=== PATIENT | male | born 1960 | race Caucasian/White ===

== ENCOUNTER 2021-04-05 12:32 | Inpatient (IN) ==
[2021-04-05] MEDS ORDERED: Isovue-370 500 ML BOTTLE IVP ONE (13:40)
[2021-04-05 14:03] LABS: Alanine Aminotransferase 104 Units/L (7-52); Albumin 3.7 g/dL (3.5-5.7); Albumin/Globulin Ratio 1.1 (1.1-2.2); Alkaline Phosphatase 86 Units/L (34-104); Aspartate Amino Transferase 224 Units/L (13-39); BUN/Creatinine Ratio 21 (6-26); Bilirubin,Direct 0.2 mg/dL (0.0-0.2); Bilirubin,Indirect 0.6 mg/dL (0.0-1.0); Bilirubin,Total 0.8 mg/dL (0.3-1.0); Blood Urea Nitrogen 29 mg/dL (6-20); Calcium 8.2 mg/dL (8.6-10.3); Carbon Dioxide 23 mEq/L (23-29); Chloride 87 mEq/L (98-107); Globulin 3.3 g/dL (2.4-3.5); Glucose 113 mg/dL (70-105); Osmolality,Calculated 269 (280-300); Potassium 3.4 mEq/L (3.5-5.1); Sodium 126 mEq/L (136-145); Troponin I 0.05 ng/mL (< 0.04); eGFR For African Americans > 60 (> 60); eGFR For Non-African Americans 51 (> 60)
[2021-04-05 14:16] LABS: Basophils % 0.3 %; Hematocrit 36.5 % (37.5-50.1); Immature Granulocytes % 4.4 % (0-4); Lymphocytes # 0.7 K/mcL (0.6-4.6); Lymphocytes % 10.8 %; Mean Corpuscular HGB Conc 35.6 g/dL (31.6-35.5); Mean Corpuscular Hemoglobin 30.4 pg (28.0-33.3); Mean Corpuscular Volume 85.5 fL (83.0-100.0); Mean Platelet Volume 9.5 fL (9.4-12.4); Monocytes # 0.4 K/mcL (0.0-1.3); Monocytes % 6.4 %; Neutrophils # 4.8 K/mcL (1.6-8.9); Nucleated Red Blood Cells 0.8 /100 WBC (0); Platelet Count 166 K/mcL (140-400); Red Blood Count 4.27 M/mcL (4.19-5.50); Red Cell Distribution Width 13.2 % (11.5-14.5); Segmented Neutrophils % 78.1 %; White Blood Count 6.1 K/mcL (4.3-11.1)
[2021-04-05] MEDS ORDERED: 0.9 % Sodium Chloride 250 ML IVC ONE (14:26)
[2021-04-05] MEDS ORDERED: Aspirin 325 MG TABLET PO ONE (15:04)
[2021-04-05 15:05] LABS: Platelet Estimate Normal (Normal)
[2021-04-05] MEDS ORDERED: 0.9 % Sodium Chloride 500 ML IVC ONE (15:30)
[2021-04-05] MEDS ORDERED: Melatonin 3 MG TABLET PO PRN (15:45)
[2021-04-05] MEDS ORDERED: Ondansetron 4 MG/2 ML VIAL IVP PRN (15:45)
[2021-04-05] MEDS ORDERED: Acetaminophen 325 MG TABLET PO PRN (15:45)
[2021-04-05] MEDS ORDERED: Naloxone 0.4 MG/ML INJ IVP PRN (15:45)
[2021-04-05] MEDS: Dexamethasone Sodium Phos/PF 10 MG/ML VIAL IVP SCH ×2 (15:57→16:26)
[2021-04-05] MEDS ORDERED: Remdesivir 200 MG in 0.9 % Sodium Chloride 100 ML IVPB ONE ×2 (16:09→17:22)
[2021-04-05 16:53] LABS: Creatine Kinase 3319 Units/L (30-223)
[2021-04-05 16:57] LABS: Bilirubin,Urine Negative (Negative); Blood,Urine Moderate (Negative); Clarity,Urine Clear (Clear); Color,Urine Light-Yellow (Yellow); Glucose,Urine (UA) Normal (Normal); Ketones,Urine Negative (Negative); Leukocyte Esterase,Urine Negative (Negative); Nitrite,Urine Negative (Negative); Protein,Urine 50 mg/dL (Neg-Trace); RBC,Urine 0-3 per hpf (0-3); Specific Gravity,Urine 1.018 (1.010-1.025); Squamous Epithelial Cell,Urine Few per hpf (None-Few); Urobilinogen,Urine Normal (Normal); WBC,Urine 0-3 per hpf (0-3)
[2021-04-05 20:06] LABS: BUN/Creatinine Ratio 21 (6-26); Blood Urea Nitrogen 24 mg/dL (6-20); Calcium 7.8 mg/dL (8.6-10.3); Carbon Dioxide 23 mEq/L (23-29); Chloride 95 mEq/L (98-107); Glucose 120 mg/dL (70-105); Osmolality,Calculated 273 (280-300); Potassium 3.9 mEq/L (3.5-5.1); Sodium 129 mEq/L (136-145); eGFR For African Americans > 60 (> 60); eGFR For Non-African Americans > 60 (> 60)
[2021-04-05] MEDS: 0.9 % Sodium Chloride 1,000 ML IVC SCH (20:14)
[2021-04-06 02:31] LABS: Influenza A PCR Negative (Negative); Influenza B PCR Negative (Negative); Resp. Syncytial Virus PCR Negative (Negative)
[2021-04-06 02:32] LABS: SARS-CoV-2 by PCR (In House) Positive (Negative)
[2021-04-06] MEDS: 0.9 % Sodium Chloride 1,000 ML IVC SCH ×2 (04:22→12:24)
[2021-04-06 06:04] LABS: Hematocrit 39.6 % (37.5-50.1); Hemoglobin 13.6 g/dL (12.9-16.9); Mean Corpuscular HGB Conc 34.3 g/dL (31.6-35.5); Mean Corpuscular Hemoglobin 30.5 pg (28.0-33.3); Mean Corpuscular Volume 88.8 fL (83.0-100.0); Mean Platelet Volume 9.7 fL (9.4-12.4); Platelet Count 182 K/mcL (140-400); Red Blood Count 4.46 M/mcL (4.19-5.50); Red Cell Distribution Width 13.4 % (11.5-14.5); White Blood Count 6.3 K/mcL (4.3-11.1)
[2021-04-06] MEDS: *HR* Enoxaparin 40 MG/0.4 ML SYRINGE SQ SCH (06:05)
[2021-04-06 06:29] LABS: BUN/Creatinine Ratio 22 (6-26); Blood Urea Nitrogen 23 mg/dL (6-20); Carbon Dioxide 22 mEq/L (23-29); Chloride 100 mEq/L (98-107); Glucose 134 mg/dL (70-105); Magnesium 2.7 mg/dL (1.6-2.6); Osmolality,Calculated 284 (280-300); Potassium 4.1 mEq/L (3.5-5.1); Sodium 134 mEq/L (136-145); eGFR For African Americans > 60 (> 60); eGFR For Non-African Americans > 60 (> 60)
[2021-04-06 07:53] LABS: Albumin 3.5 g/dL (3.5-5.7); Albumin/Globulin Ratio 1.3 (1.1-2.2); Bilirubin,Direct 0.2 mg/dL (0.0-0.2); Bilirubin,Indirect 0.4 mg/dL (0.0-1.0); Bilirubin,Total 0.6 mg/dL (0.3-1.0); Globulin 2.7 g/dL (2.4-3.5); Total Protein 6.2 g/dL (6.4-8.9)
[2021-04-06] MEDS: Dexamethasone Sodium Phos/PF 10 MG/ML VIAL IVP SCH (08:28)
[2021-04-06] MEDS: cefTRIAXone 1,000 MG in Water for inj. (sterile) 10 ML IVP SCH (12:23)
[2021-04-06] MEDS: Remdesivir 100 MG in 0.9 % Sodium Chloride 100 ML IVPB SCH (16:26)
[2021-04-06] MEDS ORDERED: Remdesivir 100 MG in 0.9 % Sodium Chloride 100 ML IVPB SCH (17:00)
[2021-04-07] MEDS ORDERED: Artificial Tears SOLN 15 ML BOTTLE BOTH EYES SCH (03:11)
[2021-04-07] MEDS: CLEAR EYES NATURAL TEARS 15 ML BOTTLE BOTH EYES SCH ×5 (04:00→21:16)
[2021-04-07] MEDS: 0.9 % Sodium Chloride 1,000 ML IVC SCH (04:01)
[2021-04-07] MEDS: *HR* Enoxaparin 40 MG/0.4 ML SYRINGE SQ SCH (04:48)
[2021-04-07 09:19] LABS: Troponin I 0.11 ng/mL (< 0.04)
[2021-04-07] MEDS: Dexamethasone Sodium Phos/PF 10 MG/ML VIAL IVP SCH (09:28)
[2021-04-07] MEDS: cefTRIAXone 1,000 MG in Water for inj. (sterile) 10 ML IVP SCH (09:28)
[2021-04-07] MEDS ORDERED: *HR* Enoxaparin 150 MG/ML SYRINGE SQ SCH (09:30)
[2021-04-07] MEDS ORDERED: *HR* Enoxaparin 100 MG/ML SYRINGE SQ ONE (09:48)
[2021-04-07 11:17] LABS: Albumin 3.4 g/dL (3.5-5.7); Albumin/Globulin Ratio 1.1 (1.1-2.2); Alkaline Phosphatase 125 Units/L (34-104); Aspartate Amino Transferase 128 Units/L (13-39); Bilirubin,Direct 0.2 mg/dL (0.0-0.2); Bilirubin,Indirect 0.5 mg/dL (0.0-1.0); Bilirubin,Total 0.7 mg/dL (0.3-1.0); C-Reactive Protein 37 mg/L (Less than 10); Calcium 7.8 mg/dL (8.6-10.3); Chloride 105 mEq/L (98-107); Creatine Kinase 1604 Units/L (30-223); Globulin 3.2 g/dL (2.4-3.5); Glucose 157 mg/dL (70-105); Phosphorous 2.3 mg/dL (2.7-4.5); Potassium 3.5 mEq/L (3.5-5.1); Sodium 139 mEq/L (136-145); Total Protein 6.6 g/dL (6.4-8.9)
[2021-04-07 13:01] LABS: Alanine Aminotransferase 96 Units/L (7-52); BUN/Creatinine Ratio 23 (6-26); Blood Urea Nitrogen 21 mg/dL (6-20); Carbon Dioxide 24 mEq/L (23-29); Magnesium 2.5 mg/dL (1.6-2.6); Osmolality,Calculated 294 (280-300); eGFR For African Americans > 60 (> 60); eGFR For Non-African Americans > 60 (> 60)
[2021-04-07] MEDS: Remdesivir 100 MG in 0.9 % Sodium Chloride 100 ML IVPB SCH (17:00)
[2021-04-07] MEDS: Ipratropium 1 PUFF INHALER IH SCH ×2 (18:06→20:56)
[2021-04-07] MEDS ORDERED: Furosemide 40 MG/4 ML VIAL IVP ONE (18:26)
[2021-04-07] MEDS: *HR* Enoxaparin 150 MG/ML SYRINGE SQ SCH (21:16)
[2021-04-08] MEDS: Ipratropium 1 PUFF INHALER IH SCH ×4 (05:45→22:23)
[2021-04-08] MEDS: CLEAR EYES NATURAL TEARS 15 ML BOTTLE BOTH EYES SCH ×4 (08:03→20:46)
[2021-04-08 08:55] LABS: Alanine Aminotransferase 102 Units/L (7-52); Albumin 3.6 g/dL (3.5-5.7); Albumin/Globulin Ratio 1.2 (1.1-2.2); Alkaline Phosphatase 163 Units/L (34-104); Aspartate Amino Transferase 102 Units/L (13-39); BUN/Creatinine Ratio 30 (6-26); Bilirubin,Direct 0.2 mg/dL (0.0-0.2); Bilirubin,Indirect 0.7 mg/dL (0.0-1.0); Bilirubin,Total 0.9 mg/dL (0.3-1.0); Blood Urea Nitrogen 28 mg/dL (6-20); Calcium 8.4 mg/dL (8.6-10.3); Carbon Dioxide 26 mEq/L (23-29); Chloride 105 mEq/L (98-107); Creatine Kinase 1237 Units/L (30-223); Glucose 126 mg/dL (70-105); Magnesium 2.3 mg/dL (1.6-2.6); Osmolality,Calculated 297 (280-300); Phosphorous 3.4 mg/dL (2.7-4.5); Sodium 140 mEq/L (136-145); Total Protein 6.6 g/dL (6.4-8.9); eGFR For African Americans > 60 (> 60); eGFR For Non-African Americans > 60 (> 60)
[2021-04-08] MEDS: Dexamethasone Sodium Phos/PF 10 MG/ML VIAL IVP SCH (09:13)
[2021-04-08] MEDS: cefTRIAXone 1,000 MG in Water for inj. (sterile) 10 ML IVP SCH (09:14)
[2021-04-08] MEDS: *HR* Enoxaparin 150 MG/ML SYRINGE SQ SCH ×2 (11:56→22:25)
[2021-04-08] MEDS: Remdesivir 100 MG in 0.9 % Sodium Chloride 100 ML IVPB SCH (18:43)
[2021-04-08] MEDS: *HR* LORazepam 2 MG/ML VIAL IVP PRN (22:26)
[2021-04-08] MEDS ORDERED: Dexmedetomidine HCl 400 MCG/100 ML MLS IVC ONE (23:47)
[2021-04-09] MEDS ORDERED: *HR* LORazepam 2 MG/ML VIAL IVP ONE
[2021-04-09] MEDS: Dexmedetomidine HCl 400 MCG/100 ML MLS IVC SCH ×8 (00:04→20:12)
[2021-04-09] MEDS ORDERED: *HR* Labetalol 20 MG/4 ML SYRINGE IVP ONE ×3 (00:05→22:34)
[2021-04-09] MEDS ORDERED: Haloperidol Lactate 5 MG/ML VIAL IVP ONE ×2 (00:24→22:28)
[2021-04-09 03:10] LABS: Hematocrit 37.3 % (37.5-50.1); Hemoglobin 12.4 g/dL (12.9-16.9); Mean Corpuscular HGB Conc 33.2 g/dL (31.6-35.5); Mean Corpuscular Hemoglobin 29.7 pg (28.0-33.3); Mean Corpuscular Volume 89.2 fL (83.0-100.0); Mean Platelet Volume 9.8 fL (9.4-12.4); Platelet Count 144 K/mcL (140-400); Red Blood Count 4.18 M/mcL (4.19-5.50); Red Cell Distribution Width 14.1 % (11.5-14.5); White Blood Count 15.9 K/mcL (4.3-11.1)
[2021-04-09] MEDS: Ipratropium 1 PUFF INHALER IH SCH ×4 (03:14→20:45)
[2021-04-09 03:26] LABS: Albumin 3.3 g/dL (3.5-5.7); Albumin/Globulin Ratio 1.1 (1.1-2.2); Bilirubin,Direct 0.2 mg/dL (0.0-0.2); Bilirubin,Indirect 0.6 mg/dL (0.0-1.0); Bilirubin,Total 0.8 mg/dL (0.3-1.0); Globulin 3.1 g/dL (2.4-3.5); Total Protein 6.4 g/dL (6.4-8.9)
[2021-04-09 03:28] LABS: BUN/Creatinine Ratio 26 (6-26); Blood Urea Nitrogen 28 mg/dL (6-20); Calcium 8.2 mg/dL (8.6-10.3); Carbon Dioxide 23 mEq/L (23-29); Chloride 104 mEq/L (98-107); Glucose 157 mg/dL (70-105); Osmolality,Calculated 291 (280-300); Potassium 4.3 mEq/L (3.5-5.1); Sodium 136 mEq/L (136-145); eGFR For African Americans > 60 (> 60); eGFR For Non-African Americans > 60 (> 60)
[2021-04-09] MEDS: cefTRIAXone 1,000 MG in Water for inj. (sterile) 10 ML IVP SCH (08:37)
[2021-04-09] MEDS: Dexamethasone Sodium Phos/PF 10 MG/ML VIAL IVP SCH (08:38)
[2021-04-09] MEDS: CLEAR EYES NATURAL TEARS 15 ML BOTTLE BOTH EYES SCH ×4 (08:39→22:10)
[2021-04-09] MEDS ORDERED: Furosemide 40 MG/4 ML VIAL IVP ONE (11:35)
[2021-04-09] MEDS: *HR* Enoxaparin 150 MG/ML SYRINGE SQ SCH ×2 (13:12→20:09)
[2021-04-09] MEDS: Furosemide 20 MG/2 ML VIAL IVP SCH (16:20)
[2021-04-09] MEDS: Remdesivir 100 MG in 0.9 % Sodium Chloride 100 ML IVPB SCH (20:08)
[2021-04-09] MEDS: *HR* LORazepam 2 MG/ML VIAL IVP PRN (22:09)
[2021-04-09] MEDS: LORazepam 20 MG in D5% in Water (EXCEL) 240 ML IVC SCH (23:08)
[2021-04-09] MEDS ORDERED: Furosemide 20 MG/2 ML VIAL IVP ONE (23:33)
[2021-04-10] MEDS: Dexmedetomidine HCl 400 MCG/100 ML MLS IVC SCH ×3 (01:37→07:00)
[2021-04-10 02:53] LABS: Albumin 3.3 g/dL (3.5-5.7); BUN/Creatinine Ratio 35 (6-26); Bilirubin,Direct 0.1 mg/dL (0.0-0.2); Bilirubin,Indirect 0.6 mg/dL (0.0-1.0); Bilirubin,Total 0.7 mg/dL (0.3-1.0); Blood Urea Nitrogen 37 mg/dL (6-20); C-Reactive Protein 128 mg/L (Less than 10); Calcium 8.1 mg/dL (8.6-10.3); Carbon Dioxide 24 mEq/L (23-29); Chloride 102 mEq/L (98-107); Globulin 3.3 g/dL (2.4-3.5); Glucose 197 mg/dL (70-105); Osmolality,Calculated 300 (280-300); Potassium 4.2 mEq/L (3.5-5.1); Sodium 138 mEq/L (136-145); Total Protein 6.6 g/dL (6.4-8.9); eGFR For African Americans > 60 (> 60); eGFR For Non-African Americans > 60 (> 60)
[2021-04-10] MEDS: Ipratropium 1 PUFF INHALER IH SCH ×4 (04:15→21:43)
[2021-04-10 05:27] LABS: ABG Base Excess 3 mEq/L (-2 to 3); ABG HCO3 26 mEq/L (21-27); ABG Oxygen Saturation 91 % (95-98); ABG PCO2 37 mmHg (35-45); ABG PH 7.46 pH Units (7.32-7.45); ABG PO2 57 mmHg (85-104); ABG TCO2 28 mEq/L (20-26)
[2021-04-10] MEDS: LORazepam 20 MG in D5% in Water (EXCEL) 240 ML IVC SCH (05:44)
[2021-04-10] MEDS: cefTRIAXone 1,000 MG in Water for inj. (sterile) 10 ML IVP SCH (07:57)
[2021-04-10] MEDS: Dexamethasone Sodium Phos/PF 10 MG/ML VIAL IVP SCH (07:58)
[2021-04-10] MEDS: Furosemide 20 MG/2 ML VIAL IVP SCH ×2 (07:58→16:45)
[2021-04-10] MEDS: CLEAR EYES NATURAL TEARS 15 ML BOTTLE BOTH EYES SCH (08:19)
[2021-04-10] MEDS: FentaNYL (PF) 1,000 MCG/100 ML IV.SOLN IVC SCH ×2 (08:54→15:49)
[2021-04-10] MEDS: *HR* Enoxaparin 150 MG/ML SYRINGE SQ SCH ×2 (11:19→19:52)
[2021-04-10] MEDS: Norepinephrine 4 MG/254 ML IV.SOLN IVC SCH (11:41)
[2021-04-10] MEDS: Midazolam HCl 50 MG/100 ML IV.SOLN IVC SCH (11:44)
[2021-04-10 12:16] LABS: ABG Base Excess 1 mEq/L (-2 to 3); ABG HCO3 31 mEq/L (21-27); ABG Oxygen Saturation 89 % (95-98); ABG PCO2 72 mmHg (35-45); ABG PH 7.24 pH Units (7.32-7.45); ABG PO2 69 mmHg (85-104); ABG TCO2 33 mEq/L (20-26); Blood Gas Modality ASSIST CONTROL; Blood Gas VT 450 cc
[2021-04-10] MEDS: 0.9 % Sodium Chloride 1,000 ML IVC SCH (12:24)
[2021-04-10] MEDS: Cisatracurium 200 MG in 0.9 % Sodium Chloride 180 ML IVC SCH ×2 (12:45→21:41)
[2021-04-10] MEDS: Artificial Tears SOLN 15 ML BOTTLE BOTH EYES SCH ×3 (12:45→19:53)
[2021-04-10 15:12] LABS: Basophils # 0.1 K/mcL (0.0-0.2); Basophils % 0.3 %; Eosinophils % 0.1 %; Hematocrit 44.7 % (37.5-50.1); Immature Granulocytes % 3.5 % (0-4); Lymphocytes # 0.4 K/mcL (0.6-4.6); Lymphocytes % 2.5 %; Mean Corpuscular HGB Conc 31.5 g/dL (31.6-35.5); Mean Corpuscular Hemoglobin 29.9 pg (28.0-33.3); Mean Corpuscular Volume 94.9 fL (83.0-100.0); Mean Platelet Volume 10.6 fL (9.4-12.4); Monocytes # 0.6 K/mcL (0.0-1.3); Monocytes % 3.3 %; Neutrophils # 15.4 K/mcL (1.6-8.9); Platelet Count 224 K/mcL (140-400); Red Blood Count 4.71 M/mcL (4.19-5.50); Red Cell Distribution Width 14.4 % (11.5-14.5); Segmented Neutrophils % 90.3 %
[2021-04-10 15:21] LABS: Amorphous Sediment,Urine Few per hpf (None-Few); Bilirubin,Urine Negative (Negative); Blood,Urine Large (Negative); Clarity,Urine Ex.Turbid (Clear); Color,Urine Yellow (Yellow); Glucose,Urine (UA) Normal (Normal); Ketones,Urine Negative (Negative); Leukocyte Esterase,Urine Negative (Negative); Mucus,Urine Few per lpf (None-Few); Nitrite,Urine Negative (Negative); Protein,Urine 200 mg/dL (Neg-Trace); Specific Gravity,Urine 1.029 (1.010-1.025); Transitional Epi Cells,Urine Few per hpf (None-Few); Urobilinogen,Urine Normal (Normal); WBC,Urine 30-50 per hpf (0-3)
[2021-04-10 15:41] LABS: Hemoglobin 14.1 g/dL (12.9-16.9)
[2021-04-10 15:46] LABS: ABG Base Excess 1 mEq/L (-2 to 3); ABG Chloride 104 mEq/L (98-107); ABG Glucose 174 mg/dL (60-95); ABG HCO3 34 mEq/L (21-27); ABG Oxygen Saturation 99 % (95-98); ABG PCO2 102 mmHg (35-45); ABG PH 7.14 pH Units (7.32-7.45); ABG PO2 200 mmHg (85-104); ABG TCO2 38 mEq/L (20-26); Blood Gas Modality BiLevel; Blood Gas VT 450 cc
[2021-04-10 15:55] LABS: Platelet Estimate Normal (Normal)
[2021-04-10 20:12] LABS: ABG Base Excess 2 mEq/L (-2 to 3); ABG HCO3 34 mEq/L (21-27); ABG Oxygen Saturation 100 % (95-98); ABG PCO2 87 mmHg (35-45); ABG PO2 208 mmHg (85-104); ABG TCO2 37 mEq/L (20-26); Blood Gas VT 500 cc
[2021-04-10] MEDS: FentaNYL (PF) 2,500 MCG/50 ML IV.SOLN IVC SCH (22:51)
[2021-04-11] MEDS: Ipratropium 1 PUFF INHALER IH SCH ×4 (03:21→21:16)
[2021-04-11 03:43] LABS: Basophils # 0.1 K/mcL (0.0-0.2); Basophils % 0.5 %; Hematocrit 45.8 % (37.5-50.1); Hemoglobin 13.8 g/dL (12.9-16.9); Immature Granulocytes % 3.3 % (0-4); Lymphocytes # 0.3 K/mcL (0.6-4.6); Lymphocytes % 1.7 %; Mean Corpuscular HGB Conc 30.1 g/dL (31.6-35.5); Mean Corpuscular Hemoglobin 29.1 pg (28.0-33.3); Mean Corpuscular Volume 96.4 fL (83.0-100.0); Mean Platelet Volume 10.3 fL (9.4-12.4); Monocytes # 0.7 K/mcL (0.0-1.3); Monocytes % 4.7 %; Neutrophils # 13.7 K/mcL (1.6-8.9); Nucleated Red Blood Cells 0.3 /100 WBC (0); Platelet Count 237 K/mcL (140-400); Red Blood Count 4.75 M/mcL (4.19-5.50); Red Cell Distribution Width 14.6 % (11.5-14.5); Segmented Neutrophils % 89.8 %; White Blood Count 15.3 K/mcL (4.3-11.1)
[2021-04-11 03:51] LABS: VBG Ionized Calcium 1.08 mmol/L (1.15-1.35)
[2021-04-11 03:54] LABS: ABG Base Excess 3 mEq/L (-2 to 3); ABG HCO3 34 mEq/L (21-27); ABG Oxygen Saturation 95 % (95-98); ABG PCO2 81 mmHg (35-45); ABG PH 7.23 pH Units (7.32-7.45); ABG PO2 94 mmHg (85-104); ABG TCO2 37 mEq/L (20-26); Blood Gas VT 500 cc
[2021-04-11 03:57] LABS: BUN/Creatinine Ratio 32 (6-26); Blood Urea Nitrogen 40 mg/dL (6-20); Calcium 8.4 mg/dL (8.6-10.3); Carbon Dioxide 33 mEq/L (23-29); Chloride 103 mEq/L (98-107); Glucose 191 mg/dL (70-105); Osmolality,Calculated 307 (280-300); Phosphorous 4.6 mg/dL (2.7-4.5); Potassium 5.2 mEq/L (3.5-5.1); Sodium 141 mEq/L (136-145); eGFR For African Americans > 60 (> 60); eGFR For Non-African Americans 59 (> 60)
[2021-04-11 04:42] LABS: Platelet Estimate Normal (Normal)
[2021-04-11] MEDS ORDERED: Calcium Gluconate 1gm/50mL 1 GM/50 ML BAG IVPB ONE (05:00)
[2021-04-11] MEDS: cefTRIAXone 1,000 MG in Water for inj. (sterile) 10 ML IVP SCH (07:41)
[2021-04-11] MEDS: Furosemide 20 MG/2 ML VIAL IVP SCH ×2 (07:41→16:42)
[2021-04-11] MEDS: Dexamethasone Sodium Phos/PF 10 MG/ML VIAL IVP SCH (07:42)
[2021-04-11] MEDS: Artificial Tears SOLN 15 ML BOTTLE BOTH EYES SCH ×4 (07:42→19:53)
[2021-04-11] MEDS: Cisatracurium 200 MG in 0.9 % Sodium Chloride 180 ML IVC SCH ×2 (07:42→19:53)
[2021-04-11] MEDS: Midazolam HCl 50 MG/100 ML IV.SOLN IVC SCH (09:18)
[2021-04-11] MEDS: Norepinephrine 4 MG/254 ML IV.SOLN IVC SCH (09:18)
[2021-04-11] MEDS ORDERED: Pantoprazole 40 MG VIAL IVP ONE (09:27)
[2021-04-11] MEDS: *HR* Enoxaparin 150 MG/ML SYRINGE SQ SCH ×2 (10:05→22:20)
[2021-04-11] MEDS: FentaNYL (PF) 2,500 MCG/50 ML IV.SOLN IVC SCH (16:16)
[2021-04-12] MEDS: Ipratropium 1 PUFF INHALER IH SCH ×4 (02:52→21:43)
[2021-04-12 03:51] LABS: Basophils # 0.1 K/mcL (0.0-0.2); Basophils % 0.5 %; Eosinophils # 0.1 K/mcL (0.0-0.6); Eosinophils % 0.3 %; Hematocrit 43.7 % (37.5-50.1); Hemoglobin 12.9 g/dL (12.9-16.9); Immature Granulocytes % 3.1 % (0-4); Lymphocytes # 0.2 K/mcL (0.6-4.6); Lymphocytes % 1.4 %; Mean Corpuscular HGB Conc 29.5 g/dL (31.6-35.5); Mean Corpuscular Hemoglobin 28.7 pg (28.0-33.3); Mean Corpuscular Volume 97.3 fL (83.0-100.0); Monocytes # 0.9 K/mcL (0.0-1.3); Monocytes % 5.9 %; Neutrophils # 13.1 K/mcL (1.6-8.9); Nucleated Red Blood Cells 0.2 /100 WBC (0); Platelet Count 232 K/mcL (140-400); Red Blood Count 4.49 M/mcL (4.19-5.50); Red Cell Distribution Width 14.5 % (11.5-14.5); Segmented Neutrophils % 88.8 %; White Blood Count 14.8 K/mcL (4.3-11.1)
[2021-04-12 04:03] LABS: Albumin 2.9 g/dL (3.5-5.7); Albumin/Globulin Ratio 0.7 (1.1-2.2); Bilirubin,Total 0.6 mg/dL (0.3-1.0); Calcium 8.8 mg/dL (8.6-10.3); Globulin 3.9 g/dL (2.4-3.5); Magnesium 3.7 mg/dL (1.6-2.6); Phosphorous 5.6 mg/dL (2.7-4.5); Potassium 5.9 mEq/L (3.5-5.1); Total Protein 6.8 g/dL (6.4-8.9)
[2021-04-12 05:18] LABS: ABG Base Excess 5 mEq/L (-2 to 3); ABG HCO3 36 mEq/L (21-27); ABG Oxygen Saturation 100 % (95-98); ABG PCO2 83 mmHg (35-45); ABG PH 7.25 pH Units (7.32-7.45); ABG PO2 206 mmHg (85-104); ABG TCO2 39 mEq/L (20-26); Blood Gas Modality ASSIST CONTROL; Blood Gas VT 500 cc
[2021-04-12] MEDS: FentaNYL (PF) 2,500 MCG/50 ML IV.SOLN IVC SCH ×2 (05:33→22:39)
[2021-04-12] MEDS: cefTRIAXone 1,000 MG in Water for inj. (sterile) 10 ML IVP SCH (08:19)
[2021-04-12] MEDS: Pantoprazole 40 MG VIAL IVP SCH (08:19)
[2021-04-12] MEDS: Artificial Tears SOLN 15 ML BOTTLE BOTH EYES SCH ×4 (08:21→19:39)
[2021-04-12] MEDS: Furosemide 20 MG/2 ML VIAL IVP SCH ×2 (08:21→16:10)
[2021-04-12] MEDS: Dexamethasone Sodium Phos/PF 10 MG/ML VIAL IVP SCH (08:21)
[2021-04-12] MEDS: *HR* Enoxaparin 150 MG/ML SYRINGE SQ SCH ×2 (08:22→22:41)
[2021-04-12] MEDS: Norepinephrine 4 MG/254 ML IV.SOLN IVC SCH (08:22)
[2021-04-12] MEDS: Cisatracurium 200 MG in 0.9 % Sodium Chloride 180 ML IVC SCH ×2 (08:24→22:46)
[2021-04-12] MEDS ORDERED: Artificial Tears SOLN 15 ML BOTTLE BOTH EYES PRN (13:00)
[2021-04-12 17:37] LABS: Sodium, Urine 31.1 mEq/L
[2021-04-12 17:55] LABS: Bilirubin,Urine Negative (Negative); Blood,Urine Moderate (Negative); Clarity,Urine Turbid (Clear); Color,Urine Light-Yellow (Yellow); Glucose,Urine (UA) Normal (Normal); Ketones,Urine Negative (Negative); Leukocyte Esterase,Urine Negative (Negative); Nitrite,Urine Negative (Negative); PH,Urine 5.5 pH Units (5.0-8.0); Protein,Urine Trace mg/dL (Neg-Trace); Specific Gravity,Urine 1.016 (1.010-1.025); Urobilinogen,Urine Normal (Normal)
[2021-04-12 19:13] LABS: Granular Casts,Urine Few per lpf (None Seen); Hyaline Casts,Urine Few per lpf (None Seen)
[2021-04-12 19:15] LABS: Amorphous Sediment,Urine Few per hpf (None-Few); Mucus,Urine Few per lpf (None-Few); Squamous Epithelial Cell,Urine Few per hpf (None-Few); WBC,Urine 0-3 per hpf (0-3)
[2021-04-12 19:16] LABS: Bacteria,Urine None Seen per hpf (None-Few)
[2021-04-12] MEDS ORDERED: Dextrose Gel 15 GM/37.5 ML TUBE PO PRN ×2 (22:45)
[2021-04-12] MEDS ORDERED: D5% in Water 1,000 ML IVC PRN (22:45)
[2021-04-12] MEDS: Insulin LISPRO 300 UNITS/3 ML VIAL SUBQ SCH (23:07)
[2021-04-12] MEDS: Chlorhexidine Rinse 15 ML MOUTHWASH MM SCH (23:07)
[2021-04-13] MEDS: Ipratropium 1 PUFF INHALER IH SCH ×4 (03:15→21:51)
[2021-04-13] MEDS: Dexmedetomidine HCl 400 MCG/100 ML MLS IVC SCH ×2 (03:27→16:29)
[2021-04-13 04:44] LABS: Basophils # 0.1 K/mcL (0.0-0.2); Basophils % 0.6 %; Eosinophils % 0.2 %; Hematocrit 38.6 % (37.5-50.1); Hemoglobin 12.2 g/dL (12.9-16.9); Immature Granulocytes % 5.2 % (0-4); Lymphocytes # 0.4 K/mcL (0.6-4.6); Lymphocytes % 2.1 %; Mean Corpuscular HGB Conc 31.6 g/dL (31.6-35.5); Mean Corpuscular Hemoglobin 29.8 pg (28.0-33.3); Mean Corpuscular Volume 94.1 fL (83.0-100.0); Monocytes # 1.1 K/mcL (0.0-1.3); Monocytes % 6.4 %; Neutrophils # 14.6 K/mcL (1.6-8.9); Nucleated Red Blood Cells 0.2 /100 WBC (0); Platelet Count 249 K/mcL (140-400); Segmented Neutrophils % 85.5 %; White Blood Count 17.1 K/mcL (4.3-11.1)
[2021-04-13 04:47] LABS: Albumin 2.8 g/dL (3.5-5.7); Albumin/Globulin Ratio 0.8 (1.1-2.2); Bilirubin,Total 0.6 mg/dL (0.3-1.0); Calcium 8.9 mg/dL (8.6-10.3); Globulin 3.7 g/dL (2.4-3.5); Magnesium 3.8 mg/dL (1.6-2.6); Phosphorous 4.9 mg/dL (2.7-4.5); Potassium 5.1 mEq/L (3.5-5.1); Total Protein 6.5 g/dL (6.4-8.9)
[2021-04-13 05:09] LABS: INR 1.1; Prothrombin Time 12.5 Seconds (9.4-12.1)
[2021-04-13] MEDS: Insulin LISPRO 300 UNITS/3 ML VIAL SUBQ SCH ×3 (05:10→17:42)
[2021-04-13 05:39] LABS: Platelet Estimate Normal (Normal)
[2021-04-13 05:42] LABS: ABG Base Excess 5 mEq/L (-2 to 3); ABG HCO3 33 mEq/L (21-27); ABG Oxygen Saturation 94 % (95-98); ABG PCO2 63 mmHg (35-45); ABG PH 7.33 pH Units (7.32-7.45); ABG PO2 76 mmHg (85-104); ABG TCO2 35 mEq/L (20-26); Blood Gas VT 520 cc
[2021-04-13] MEDS: Furosemide 20 MG/2 ML VIAL IVP SCH ×3 (08:27→14:15)
[2021-04-13] MEDS: Dexamethasone Sodium Phos/PF 10 MG/ML VIAL IVP SCH (08:28)
[2021-04-13] MEDS: Chlorhexidine Rinse 15 ML MOUTHWASH MM SCH ×2 (08:29→20:11)
[2021-04-13] MEDS: *HR* Enoxaparin 150 MG/ML SYRINGE SQ SCH ×2 (08:29→21:03)
[2021-04-13] MEDS: Pantoprazole 40 MG VIAL IVP SCH (08:29)
[2021-04-13] MEDS: Cisatracurium 200 MG in 0.9 % Sodium Chloride 180 ML IVC SCH ×2 (08:36→21:45)
[2021-04-13] MEDS: Norepinephrine 4 MG/254 ML IV.SOLN IVC SCH (09:40)
[2021-04-13] MEDS: Artificial Tears SOLN 15 ML BOTTLE BOTH EYES SCH ×4 (09:41→20:08)
[2021-04-13] MEDS: FentaNYL (PF) 2,500 MCG/50 ML IV.SOLN IVC SCH (15:17)
[2021-04-14] MEDS: Insulin LISPRO 300 UNITS/3 ML VIAL SUBQ SCH ×5 (00:43→23:22)
[2021-04-14] MEDS: Ipratropium 1 PUFF INHALER IH SCH ×4 (03:30→21:58)
[2021-04-14 04:14] LABS: Basophils # 0.2 K/mcL (0.0-0.2); Basophils % 0.9 %; Eosinophils % 0.1 %; Hemoglobin 11.9 g/dL (12.9-16.9); Immature Granulocytes % 7.5 % (0-4); Lymphocytes # 0.3 K/mcL (0.6-4.6); Lymphocytes % 1.6 %; Mean Corpuscular HGB Conc 30.5 g/dL (31.6-35.5); Mean Corpuscular Hemoglobin 29.7 pg (28.0-33.3); Mean Corpuscular Volume 97.3 fL (83.0-100.0); Mean Platelet Volume 10.9 fL (9.4-12.4); Monocytes # 1.5 K/mcL (0.0-1.3); Monocytes % 7.6 %; Neutrophils # 16.3 K/mcL (1.6-8.9); Nucleated Red Blood Cells 0.2 /100 WBC (0); Platelet Count 216 K/mcL (140-400); Red Blood Count 4.01 M/mcL (4.19-5.50); Red Cell Distribution Width 14.4 % (11.5-14.5); Segmented Neutrophils % 82.3 %; White Blood Count 19.8 K/mcL (4.3-11.1)
[2021-04-14 04:28] LABS: Albumin 2.7 g/dL (3.5-5.7); Albumin/Globulin Ratio 0.6 (1.1-2.2); Bilirubin,Total 0.7 mg/dL (0.3-1.0); Globulin 4.3 g/dL (2.4-3.5); Magnesium 3.9 mg/dL (1.6-2.6); Phosphorous 6.3 mg/dL (2.7-4.5); Potassium 5.7 mEq/L (3.5-5.1)
[2021-04-14 05:00] LABS: ABG Base Excess 6 mEq/L (-2 to 3); ABG HCO3 35 mEq/L (21-27); ABG Oxygen Saturation 87 % (95-98); ABG PCO2 78 mmHg (35-45); ABG PH 7.26 pH Units (7.32-7.45); ABG PO2 63 mmHg (85-104); ABG TCO2 38 mEq/L (20-26); Blood Gas VT 520 cc
[2021-04-14 05:15] LABS: Platelet Estimate Normal (Normal); Reactive Lymphocytes Present (Not Present)
[2021-04-14] MEDS: FentaNYL (PF) 2,500 MCG/50 ML IV.SOLN IVC SCH ×2 (05:28→22:20)
[2021-04-14 06:48] LABS: VBG Ionized Calcium 1.17 mmol/L (1.15-1.35)
[2021-04-14] MEDS: Dexmedetomidine HCl 400 MCG/100 ML MLS IVC SCH ×2 (06:55→23:05)
[2021-04-14] MEDS: Norepinephrine 4 MG/254 ML IV.SOLN IVC SCH (06:55)
[2021-04-14] MEDS: Chlorhexidine Rinse 15 ML MOUTHWASH MM SCH ×2 (07:30→19:59)
[2021-04-14] MEDS: Pantoprazole 40 MG VIAL IVP SCH (07:30)
[2021-04-14] MEDS: Dexamethasone Sodium Phos/PF 10 MG/ML VIAL IVP SCH (07:31)
[2021-04-14] MEDS: Cisatracurium 200 MG in 0.9 % Sodium Chloride 180 ML IVC SCH ×2 (08:12→19:43)
[2021-04-14] MEDS: Artificial Tears SOLN 15 ML BOTTLE BOTH EYES SCH ×4 (08:47→19:59)
[2021-04-14] MEDS ORDERED: Lidocaine -MPF 1% 5 ML AMPUL INFILT ONE (09:16)
[2021-04-14 13:24] LABS: Hematocrit 38.8 % (37.5-50.1); Hemoglobin 11.8 g/dL (12.9-16.9); Mean Corpuscular HGB Conc 30.4 g/dL (31.6-35.5); Mean Corpuscular Volume 98.7 fL (83.0-100.0); Mean Platelet Volume 11.6 fL (9.4-12.4); Nucleated Red Blood Cells 0.2 /100 WBC (0); Platelet Count 242 K/mcL (140-400); Red Blood Count 3.93 M/mcL (4.19-5.50); Red Cell Distribution Width 14.4 % (11.5-14.5); White Blood Count 24.5 K/mcL (4.3-11.1)
[2021-04-14 13:51] LABS: Neutrophils # 22.5 K/mcL (1.6-8.9); Platelet Estimate Normal (Normal)
[2021-04-14 14:39] LABS: Blood Urea Nitrogen > 130 mg/dL (6-20); Calcium 9.2 mg/dL (8.6-10.3); Carbon Dioxide 34 mEq/L (23-29); Chloride 105 mEq/L (98-107); Glucose 238 mg/dL (70-105); Magnesium 3.9 mg/dL (1.6-2.6); Phosphorous 7.5 mg/dL (2.7-4.5); Potassium 6.6 mEq/L (3.5-5.1); Sodium 146 mEq/L (136-145); eGFR For African Americans 31 (> 60); eGFR For Non-African Americans 26 (> 60)
[2021-04-14] MEDS ORDERED: Insulin Human Regular 10 UNIT in 0.9 % Sodium Chloride 10 ML IV ONE (14:40)
[2021-04-14] MEDS ORDERED: *HR* Dextrose 50 % in Water (Syg) 50 ML SYRINGE IVP ONE (15:00)
[2021-04-14] MEDS: SODIUM ZIRCONIUM CYCLOSILICATE 5 GM POWD.PACK PO SCH (15:43)
[2021-04-14] MEDS: *HR* Heparin 5,000 UNIT/ML VIAL SQ SCH (17:59)
[2021-04-14] MEDS: Docusate Oral Soln 100 MG/10 ML UDC GTUBE SCH (19:59)
[2021-04-14 20:51] LABS: VBG Ionized Calcium 1.04 mmol/L (1.15-1.35)
[2021-04-14 21:21] LABS: Calcium 8.1 mg/dL (8.6-10.3); Magnesium 3.6 mg/dL (1.6-2.6)
[2021-04-15] MEDS ORDERED: Insulin Human Regular 10 UNIT in 0.9 % Sodium Chloride 10 ML IV ONE ×2 (00:46→07:02)
[2021-04-15] MEDS: Calcium Gluconate 1gm/50mL 1 GM/50 ML BAG IVPB PRN (01:23)
[2021-04-15] MEDS: *HR* Dextrose 50 % in Water (Syg) 50 ML SYRINGE IVP PRN ×2 (01:29→08:25)
[2021-04-15] MEDS: Ipratropium 1 PUFF INHALER IH SCH ×4 (03:10→21:17)
[2021-04-15 03:37] LABS: Hematocrit 31.5 % (37.5-50.1); Hemoglobin 10.7 g/dL (12.9-16.9); Mean Corpuscular Hemoglobin 34.2 pg (28.0-33.3); Mean Corpuscular Volume 100.6 fL (83.0-100.0); Nucleated Red Blood Cells 0.5 /100 WBC (0); Platelet Count 167 K/mcL (140-400); Red Blood Count 3.13 M/mcL (4.19-5.50); Red Cell Distribution Width 14.6 % (11.5-14.5); White Blood Count 19.4 K/mcL (4.3-11.1)
[2021-04-15 03:38] LABS: VBG Ionized Calcium 1.14 mmol/L (1.15-1.35)
[2021-04-15 03:40] LABS: ABG Base Excess 7 mEq/L (-2 to 3); ABG HCO3 37 mEq/L (21-27); ABG Oxygen Saturation 88 % (95-98); ABG PCO2 91 mmHg (35-45); ABG PH 7.22 pH Units (7.32-7.45); ABG PO2 69 mmHg (85-104); ABG TCO2 40 mEq/L (20-26); Blood Gas VT 520 cc
[2021-04-15 04:08] LABS: Anisocytosis 1+ (Not Present); Lymphocytes # 1.6 K/mcL (0.6-4.6); Neutrophils # 16.7 K/mcL (1.6-8.9); Platelet Estimate Normal (Normal); Reactive Lymphocytes Present (Not Present)
[2021-04-15 05:16] LABS: Hematocrit 36.9 % (37.5-50.1); Hemoglobin 10.7 g/dL (12.9-16.9); Mean Corpuscular Hemoglobin 28.9 pg (28.0-33.3); Mean Corpuscular Volume 99.7 fL (83.0-100.0); Mean Platelet Volume 11.7 fL (9.4-12.4); Nucleated Red Blood Cells 0.5 /100 WBC (0); Platelet Count 177 K/mcL (140-400); Red Cell Distribution Width 14.6 % (11.5-14.5); White Blood Count 22.2 K/mcL (4.3-11.1)
[2021-04-15 05:37] LABS: Lymphocytes # 0.9 K/mcL (0.6-4.6); Monocytes # 1.3 K/mcL (0.0-1.3)
[2021-04-15 05:38] LABS: Anisocytosis 1+ (Not Present); Platelet Estimate Normal (Normal); Reactive Lymphocytes Present (Not Present)
[2021-04-15] MEDS: *HR* Heparin 5,000 UNIT/ML VIAL SQ SCH ×2 (05:55→17:53)
[2021-04-15] MEDS: Insulin LISPRO 300 UNITS/3 ML VIAL SUBQ SCH ×4 (05:56→23:48)
[2021-04-15 06:05] LABS: Alanine Aminotransferase 53 Units/L (7-52); Albumin 2.7 g/dL (3.5-5.7); Albumin/Globulin Ratio 0.6 (1.1-2.2); Alkaline Phosphatase 64 Units/L (34-104); Aspartate Amino Transferase 32 Units/L (13-39); Blood Urea Nitrogen > 130 mg/dL (6-20); Calcium 9.5 mg/dL (8.6-10.3); Carbon Dioxide 35 mEq/L (23-29); Chloride 109 mEq/L (98-107); Globulin 4.4 g/dL (2.4-3.5); Glucose 232 mg/dL (70-105); Phosphorous 6.2 mg/dL (2.7-4.5); Potassium 6.4 mEq/L (3.5-5.1); Sodium 149 mEq/L (136-145); Total Protein 7.1 g/dL (6.4-8.9); eGFR For African Americans 29 (> 60); eGFR For Non-African Americans 24 (> 60)
[2021-04-15] MEDS: Norepinephrine 4 MG/254 ML IV.SOLN IVC SCH ×2 (07:18→15:25)
[2021-04-15] MEDS: Chlorhexidine Rinse 15 ML MOUTHWASH MM SCH ×2 (07:49→20:33)
[2021-04-15] MEDS: Docusate Oral Soln 100 MG/10 ML UDC GTUBE SCH ×2 (07:49→20:33)
[2021-04-15] MEDS: Pantoprazole 40 MG VIAL IVP SCH (07:50)
[2021-04-15] MEDS: SODIUM ZIRCONIUM CYCLOSILICATE 5 GM POWD.PACK PO SCH (07:50)
[2021-04-15] MEDS: Artificial Tears SOLN 15 ML BOTTLE BOTH EYES SCH ×4 (07:51→20:33)
[2021-04-15] MEDS ORDERED: 0.9 % Sodium Chloride 250 ML IVC PRN (09:32)
[2021-04-15] MEDS ORDERED: 0.9 % Sodium Chloride 1,000 ML PRIME SCH (09:45)
[2021-04-15] MEDS ORDERED: 0.9 % Sodium Chloride 500 ML ONE (09:47)
[2021-04-15] MEDS: Cisatracurium 200 MG in 0.9 % Sodium Chloride 180 ML IVC SCH (10:11)
[2021-04-15] MEDS ORDERED: *HR* Heparin 10,000 UNIT/10 ML VIAL IV PRN (11:05)
[2021-04-15] MEDS ORDERED: *HR* Heparin 5,000 UNIT/ML VIAL ONE (11:10)
[2021-04-15] MEDS: Dexmedetomidine HCl 400 MCG/100 ML MLS IVC SCH (12:19)
[2021-04-15 12:57] LABS: Blood Urea Nitrogen > 130 mg/dL (6-20); Calcium 9.5 mg/dL (8.6-10.3); Carbon Dioxide 37 mEq/L (23-29); Chloride 109 mEq/L (98-107); Glucose 196 mg/dL (70-105); Potassium 5.9 mEq/L (3.5-5.1); Sodium 152 mEq/L (136-145); eGFR For African Americans 28 (> 60); eGFR For Non-African Americans 23 (> 60)
[2021-04-15 14:20] LABS: Hepatitis B Surface Antibody < 3.10 mIU/mL
[2021-04-15 14:31] LABS: Hepatitis B Surface Antigen Nonreactive (Nonreactive)
[2021-04-15] MEDS ORDERED: Norepinephrine 4 MG/254 ML IV.SOLN IVC SCH (15:00)
[2021-04-15] MEDS: FentaNYL (PF) 2,500 MCG/50 ML IV.SOLN IVC SCH (16:12)
[2021-04-16] MEDS: Ipratropium 1 PUFF INHALER IH SCH ×4 (03:44→22:46)
[2021-04-16 04:40] LABS: VBG Ionized Calcium 1.17 mmol/L (1.15-1.35)
[2021-04-16 04:57] LABS: Mean Corpuscular Volume 100.9 fL (83.0-100.0)
[2021-04-16 04:59] LABS: Hematocrit 32.8 % (37.5-50.1); Hemoglobin 9.5 g/dL (12.9-16.9); Immature Platelets 19.6 % (1.1-6.1); Mean Corpuscular Hemoglobin 29.2 pg (28.0-33.3); Mean Platelet Volume 13.6 fL (9.4-12.4); Red Blood Count 3.25 M/mcL (4.19-5.50); Red Cell Distribution Width 14.8 % (11.5-14.5); White Blood Count 24.5 K/mcL (4.3-11.1)
[2021-04-16 05:33] LABS: Calcium 9.3 mg/dL (8.6-10.3); Potassium 6.3 mEq/L (3.5-5.1)
[2021-04-16 05:37] LABS: Magnesium 3.1 mg/dL (1.6-2.6); Phosphorous 7.4 mg/dL (2.7-4.5)
[2021-04-16] MEDS: Dexmedetomidine HCl 400 MCG/100 ML MLS IVC SCH ×2 (05:37→21:35)
[2021-04-16] MEDS: *HR* Heparin 5,000 UNIT/ML VIAL SQ SCH ×2 (05:37→17:00)
[2021-04-16] MEDS: Insulin LISPRO 300 UNITS/3 ML VIAL SUBQ SCH ×4 (05:38→23:35)
[2021-04-16 05:40] LABS: ABG Base Excess -2 mEq/L (-2 to 3); ABG HCO3 24 mEq/L (21-27); ABG Oxygen Saturation 77 % (95-98); ABG PCO2 44 mmHg (35-45); ABG PH 7.35 pH Units (7.32-7.45); ABG PO2 45 mmHg (85-104); ABG TCO2 26 mEq/L (20-26); Blood Gas Modality ASSIST CONTROL; Blood Gas VT 550 cc
[2021-04-16] MEDS: Cisatracurium 200 MG in 0.9 % Sodium Chloride 180 ML IVC SCH ×2 (06:07→20:44)
[2021-04-16] MEDS ORDERED: 0.9 % Sodium Chloride 250 ML IVC PRN (07:10)
[2021-04-16] MEDS: FentaNYL (PF) 2,500 MCG/50 ML IV.SOLN IVC SCH (07:46)
[2021-04-16] MEDS ORDERED: *HR* Heparin 10,000 UNIT/10 ML VIAL ONE (07:51)
[2021-04-16] MEDS: Pantoprazole 40 MG VIAL IVP SCH (09:19)
[2021-04-16] MEDS: Chlorhexidine Rinse 15 ML MOUTHWASH MM SCH ×2 (09:19→20:38)
[2021-04-16] MEDS: Artificial Tears SOLN 15 ML BOTTLE BOTH EYES SCH ×4 (09:20→20:37)
[2021-04-16] MEDS: Norepinephrine 4 MG/254 ML IV.SOLN IVC SCH ×3 (10:27→20:38)
[2021-04-16] MEDS: Docusate Oral Soln 100 MG/10 ML UDC GTUBE SCH ×2 (16:31→20:41)
[2021-04-16 22:28] LABS: Calcium 8.5 mg/dL (8.6-10.3)
[2021-04-16] MEDS: Phenylephrine 10 MG in 0.9 % Sodium Chloride 250 ML IVC SCH (22:45)
[2021-04-17] MEDS: Phenylephrine 10 MG in 0.9 % Sodium Chloride 250 ML IVC SCH ×2 (00:26→02:00)
[2021-04-17] MEDS: Phenylephrine 50 MG in 0.9 % Sodium Chloride 250 ML IVC SCH ×3 (03:22→13:04)
[2021-04-17] MEDS: Ipratropium 1 PUFF INHALER IH SCH ×3 (03:30→15:56)
[2021-04-17] MEDS: Norepinephrine 4 MG/254 ML IV.SOLN IVC SCH ×4 (04:01→10:48)
[2021-04-17] MEDS: FentaNYL (PF) 2,500 MCG/50 ML IV.SOLN IVC SCH (04:04)
[2021-04-17 04:50] LABS: VBG Ionized Calcium 0.98 mmol/L (1.15-1.35)
[2021-04-17 05:07] LABS: Magnesium 2.7 mg/dL (1.6-2.6); Phosphorous 12.6 mg/dL (2.7-4.5)
[2021-04-17] MEDS ORDERED: Vasopressin 40 UNIT in D5% in Water 100 ML IVC SCH (05:15)
[2021-04-17 05:35] LABS: Potassium 7.3 mEq/L (3.5-5.1)
[2021-04-17] MEDS: Insulin LISPRO 300 UNITS/3 ML VIAL SUBQ SCH ×2 (05:42→13:19)
[2021-04-17] MEDS: *HR* Heparin 5,000 UNIT/ML VIAL SQ SCH (05:42)
[2021-04-17 06:41] LABS: ABG Base Excess -6 mEq/L (-2 to 3); ABG HCO3 27 mEq/L (21-27); ABG Oxygen Saturation 76 % (95-98); ABG PCO2 104 mmHg (35-45); ABG PH 7.02 pH Units (7.32-7.45); ABG PO2 63 mmHg (85-104); ABG TCO2 30 mEq/L (20-26); Blood Gas Modality ASSIST CONTROL; Blood Gas VT 550 cc
[2021-04-17 07:19] LABS: Mean Corpuscular Volume 103.1 fL (83.0-100.0)
[2021-04-17 07:21] LABS: Hematocrit 30.3 % (37.5-50.1); Hemoglobin 8.6 g/dL (12.9-16.9); Immature Platelets 27.7 % (1.1-6.1); Mean Corpuscular HGB Conc 28.4 g/dL (31.6-35.5); Mean Corpuscular Hemoglobin 29.3 pg (28.0-33.3); Mean Platelet Volume 12.9 fL (9.4-12.4); Red Blood Count 2.94 M/mcL (4.19-5.50); Red Cell Distribution Width 15.2 % (11.5-14.5)
[2021-04-17 07:37] LABS: White Blood Count 39.8 K/mcL (4.3-11.1)
[2021-04-17] MEDS ORDERED: Insulin Human Regular 10 UNIT in 0.9 % Sodium Chloride 10 ML IV ONE (07:43)
[2021-04-17] MEDS ORDERED: Calcium Gluconate 1gm/50mL 1 GM/50 ML BAG IVPB PRN (07:43)
[2021-04-17] MEDS ORDERED: *HR* Dextrose 50 % in Water (Syg) 50 ML SYRINGE IVP ONE (07:44)
[2021-04-17] MEDS: Chlorhexidine Rinse 15 ML MOUTHWASH MM SCH (08:29)
[2021-04-17] MEDS: Pantoprazole 40 MG VIAL IVP SCH (08:29)
[2021-04-17] MEDS: Artificial Tears SOLN 15 ML BOTTLE BOTH EYES SCH ×2 (08:30→11:04)
[2021-04-17] MEDS: Calcium Gluconate 1gm/50mL 1 GM/50 ML BAG IVPB PRN (08:43)
[2021-04-17] MEDS ORDERED: SODIUM ZIRCONIUM CYCLOSILICATE 5 GM POWD.PACK PO SCH (10:30)
[2021-04-17] MEDS ORDERED: Norepinephrine 8 MG in 0.9 % Sodium Chloride 250 ML IVC SCH (11:00)
[2021-04-17] MEDS: Dexmedetomidine HCl 400 MCG/100 ML MLS IVC SCH (11:03)
[2021-04-17] MEDS: Docusate Oral Soln 100 MG/10 ML UDC GTUBE SCH (11:03)
[2021-04-17] MEDS: Cisatracurium 200 MG in 0.9 % Sodium Chloride 180 ML IVC SCH (13:03)
[2021-04-17 14:40] VITALS: TEMP 100.6
[2021-04-17 14:48] VITALS: BP 69/59; O2SAT 83
[2021-04-17 17:59] VITALS: PULSE 0
== END 2021-04-17 14:57 | disposition expired | DRG 870 ==
LOC: EMEROOARM 12:32 → 2NENU 23:43 → SUATTDRO 23:43 → 2NENU 04-06 01:02 → ICNU 04-10 09:31
PROVIDERS: ADMIT Internal Medicine; ATTEND Internal Medicine